=== PATIENT | female | born 1955 | race Caucasian/White ===

== ENCOUNTER 2019-09-19 17:48 | Emergency (ER) | payer OTHER ==
[2019-09-19] MEDS ORDERED: Ciprofloxacin 0.3% Ophth Soln 2.5 ML Bottle ONE (18:00)
[2019-09-19] MEDS ORDERED: Amoxicillin/Clavulanate K 875-125 MG Tab ONE (18:00)
--- NOTE | 2019-09-20 00:23 | EDM.PDOC ---
ED HPI GENERAL MEDICAL PROBLEM - General Chief Complaint: General Stated Complaint: RIGHT EAR PAIN Time Seen by Provider: 09/19/19 18:20 Source of Information: Reports: Patient History Limitations: Reports: No Limitations - History of Present Illness INITIAL COMMENTS - FREE TEXT/NARRATIVE: This is a 64yo F here for right ear pain and discharge. She notes that the pain has resolved. Onset: Sudden Duration: Resolved Prior to Arrival Location: Reports: Other (right ear) Quality: Reports: Ache Severity: Severe Improves with: Reports: None Worsens with: Reports: None Associated Symptoms: Reports: No Other Symptoms Right Ear Pain Score (Numeric/FACES): 3 - Related Data Allergies Allergy/AdvReac Type Severity Reaction Status Date / Time cephalexin [From Keflex] Allergy Rash Verified 09/19/19 18:08 Home Meds: Home Meds PHENobarbitaL [Phenobarbital] 300 mg PO DAILY 09/19/19 [History] Past Medical History Neurological History: Reports: Seizure Other Neuro History: phenbarbital Social & Family History - Family History Family Medical History: Noncontributory - Tobacco Use Smoking Status *Q: Never Smoker Second Hand Smoke Exposure: No - Caffeine Use Caffeine Use: Reports: Coffee - Recreational Drug Use Recreational Drug Use: No ED ROS GENERAL - Review of Systems Review Of Systems: Comprehensive ROS is negative, except as noted in HPI. ED EXAM, GENERAL - Physical Exam Exam: See Below Exam Limited By: No Limitations General Appearance: Alert, WD/WN, No Apparent Distress Eye Exam: Bilateral Eye: EOMI, PERRL Ears: Other (Ruptured right TM with bleeding) Ear Exam: Right Ear: Bleeding, Discharge, Erythema, TM Perforation, Left Ear: TM normal Nose: Normal Inspection Throat/Mouth: Normal Inspection Head: Atraumatic, Normocephalic Neck: Normal Inspection Respiratory/Chest: No Respiratory Distress Cardiovascular: Normal Peripheral Pulses Course - Vital Signs Last Recorded V/S: Last Vital Signs Temp 36.7 C 09/19/19 18:14 Pulse 80 09/19/19 18:14 Resp 20 09/19/19 18:14 BP 141/84 H 09/19/19 18:14 Pulse Ox 96 09/19/19 18:14 Departure - Departure Time of Disposition: 18:30 Disposition: Home, Self-Care 01 Condition: Good Clinical Impression: Otitis media of right ear Qualifiers: Otitis media type: suppurative Chronicity: acute Recurrence: non-recurrent Spontaneous tympanic membrane rupture: with spontaneous rupture Qualified Code(s ): H66.011 - Acute suppurative otitis media with spontaneous rupture of ear drum , right ear - Discharge Information Instructions: Eardrum Perforation, [id number] Referrals: PCP,None [Primary Care Provider] - Forms: ED Department Discharge Additional Instructions: Discharge home. Cipro ear drops 1-2 drops every 3-4 hours to the right ear. Augmentin 1 tablet by mouth 2 times a day for 10 days. Follow up with your primary provider. Sepsis Event Note - Evaluation Sepsis Screening Result: No Definite Risk - Focused Exam Vital Signs: Vital Signs Temp Pulse Resp BP Pulse Ox 09/19/19 18:14 36.7 C 80 20 141/84 H 96 09/19/19 18:00 36.7 C 80 20 141/84 H 96 Date Exam was Performed: 09/20/19 Time Exam was Performed: 00:21 - Problem List & Annotations (1) Otitis media of right ear SNOMED Code(s): 33426258 Code(s): H66.91 - OTITIS MEDIA, UNSPECIFIED, RIGHT EAR Status: Acute Qualifiers: Otitis media type: suppurative Chronicity: acute Recurrence: non- recurrent Spontaneous tympanic membrane rupture: with spontaneous rupture Qualified Code(s): H66.011 - Acute suppurative otitis media with spontaneous rupture of ear drum, right ear - Problem List Review Problem List Initiated/Reviewed/Updated: Yes - Assessment/Plan Plan: Counseled on antibiotics and side effects. Discussed close monitoring and f/u as directed. Rtc or ER as needed if symptoms persist or worsen.
== END 2019-09-19 18:30 | disposition home or self-care (01) ==
LOC: LB.ED 17:48
DX: H66.011 Acute suppurative otitis media with spontaneous rupture of ear drum, right ear (principal); Z88.1 Allergy status to other antibiotic agents
CPT/HCPCS: 99282; A9270-GY